=== PATIENT | male | born 1985 | race American Indian/Alaskan Native ===

== ENCOUNTER 2016-12-18 13:30 | Day surgery (SDC) | payer BC ==
--- NOTE | 2016-12-18 14:20 | Short Stay Summary ---
Short Stay Documentation Date of service: 12/18/16 Narrative H&P: 31 yr old male Ricky Harris [id number] 1985 11/19/2016 02:10 PM Page: 07/31 RT SCROTAL MASS FOR 1 YR / ++ SMOKER / PE / LOW ENERGY & LIBIDO (T LEVEL 2.6- --)---SCRTAL BLAIR---LARGE RT HYDROCELE - COPIED FOR PT & PROMESCENT - History Past Medical History: No medical history Past Surgical History: No surgical history Social history: single - Allergies and Medications Current Medications: Allergies No Known Allergies Allergy (Verified 11/27/16 14:04) Home Medications Medication Instructions Recorded Confirmed Last Taken Type No Known Home Medications [No 11/27/16 11/27/16 Unknown History Reported Home Medications] - Physical exam General appearance: no acute distress, well-nourished Integumentary: no rash, no growths HEENT: Atraumatic, PERRLA, EOMI Lungs: Clear to auscultation, Normal air movement Heart: Regular rate, No murmurs Male Genitourinary: scrotal edema Extremities: no ischemia, No edema - Brief post op/procedure progress note Date of procedure: 12/18/16 Pre-op diagnosis: rt hydrocele Post-op diagnosis: other (redundant scrotal skin) Procedure: rt hydrocelectomy scrotaplasty Anesthesia: MYRA Surgeon: PRIMITIVO MCKEON Estimated blood loss: minimal Pathology: list (sac, scrotal skin) Condition: stable - Hospital course Hospital course: [place] on chart - Disposition Condition at discharge: Stable Disposition: DISCHARGED TO HOME OR SELFCARE
[2016-12-18] MEDS ORDERED: ZOFRAN IV PRN (14:29)
[2016-12-18] MEDS ORDERED: DILAUDID IV PRN (14:29)
[2016-12-18] MEDS ORDERED: NORCO 5/325 PO PRN ×2 (14:29→18:26)
--- NOTE | 2016-12-18 14:29 | Anesthesia Consultation ---
Anesthesia Consult and Med Hx Date of service: 12/18/16 - Airway Anesthetic Teeth Evaluation: Good ROM Head & Neck: Adequate Mental/Hyoid Distance: Adequate Mallampati Class: Class II Intubation Access Assessment: Probably Good - Pulmonary Exam CTA: Yes - Cardiac Exam Cardiac Exam: RRR - Pre-Operative Health Status ASA Pre-Surgery Classification: ASA2 Proposed Anesthetic Plan: General - Pulmonary Hx Smoking: Yes (1/2 PPD X 3 YRS) Hx Sleep Apnea: No (HERBERT PRE SCREEN LOW RISK.) - Cardiovascular System Hx Hypertension: No - Other Systems Hx Cancer: No
--- NOTE | 2016-12-18 14:29 | Anesthesia Day of Surgery ---
Anesthesia Day of Surgery - Day of Surgery Patient Examined: Yes Patient H&P Reviewed: Yes Patient is NPO: Yes
[2016-12-18] MEDS ORDERED: ANCEF/STERILE WATER 2 GM/20 ML IV NR (14:30)
[2016-12-18] MEDS ORDERED: LACTATED RINGERS 1,000 ML IV SCH (14:51)
[2016-12-18] MEDS ORDERED: PEPCID PO NR (15:00)
[2016-12-18] MEDS ORDERED: VERSED IV NR (15:00)
[2016-12-18] MEDS ORDERED: SUBLIMAZE ONE (15:43)
[2016-12-18] MEDS ORDERED: XYLOCAINE MPF 2% ONE (15:43)
[2016-12-18] MEDS ORDERED: ZOFRAN ONE (15:43)
[2016-12-18] MEDS ORDERED: DIPRIVAN 10 MG/ML IV ONE ×2 (15:43→16:23)
[2016-12-18] MEDS ORDERED: DECADRON ONE (15:43)
[2016-12-18] MEDS ORDERED: DILAUDID ONE (15:43)
[2016-12-18] MEDS ORDERED: NACL 0.9% IR ONE (16:25)
--- NOTE | 2016-12-18 17:21 | Post Anesthesia Evaluation ---
- Post Anesthesia Evaluation Patient Participated: Yes Airway Patent: Yes Stable Respiratory Function: Yes Temp > 96.8F: Yes Pain Manageable: Yes Adequeate Hydration: Yes Anesthesia Complications: No Block Receding Appropriately: Not Applicable
[2016-12-18 20:20] VITALS: BP 132/82
--- NOTE | 2016-12-18 22:35 | Operative Report ---
PREOPERATIVE DIAGNOSIS: Right hydrocele (softball size). POSTOPERATIVE DIAGNOSES: 1. Right hydrocele (softball size). 2. Redundant scrotal skin. PROCEDURE: Right hydrocelectomy, scrotoplasty, [place] drain placement. SURGEON: David Ernst MD ANESTHESIA: General. ESTIMATED BLOOD LOSS: Minimal. FLUIDS: Crystalloid. COMPLICATIONS: No complications. INDICATIONS: This patient is a 31-year-old gentleman seen in the office with right softball size mass. Denies any trauma. Ultrasound revealed a large right hydrocele, normal testicle. We discussed options. He agreed to proceed with surgical intervention. Also of note, the patient indicated he did not want his family to know what procedure he had done. DESCRIPTION OF PROCEDURE: The patient was taken to the operative suite, placed in a supine position. After adequate general anesthesia, he was prepped and draped in a sterile fashion. Right hemiscrotal incision was made. Sharp dissection was taken down to the tunica vaginalis. Incision was made. Serosanguineous fluid was extracted. Normal testicle. Did have some inflammation and scarring that appeared viable. The hydrocele sac was removed and sent for routine pathologic evaluation. Whipstitch using 2-0 chromic in a running fashion was used on the remnant tunica vaginalis. A wedge resection of the right hemiscrotum was taken to reduce some of the excess scrotal skin and was sent for routine pathologic evaluation. The testicle was placed back into the hemiscrotum. Aileen drain was brought out through a separate stab incision and tied into the skin with 2-0 chromic. The dartos layer was then closed with 2-0 chromic in a running fashion. Skin was closed with 2-0 chromic in interrupted fashion. The patient tolerated the procedure well and was extubated and taken to recovery room. He will follow up in the office. He will go home on [place]. JOB# [id number] [facility]
== END 2016-12-18 13:31 | disposition home or self-care (01) ==
LOC: OR 13:30
PROVIDERS: ATTEND Urology
DX: N43.3 Hydrocele, unspecified (principal); N50.89 Other specified disorders of the male genital organs; F17.290 Nicotine dependence, other tobacco product, uncomplicated
CPT/HCPCS: 55040; 55175; 88302; 88305; J0690; J1100; J1170; J2250; J2405; J2704; J3010; J7120